=== PATIENT | male | born 1965 | race Caucasian/White ===

== ENCOUNTER 2021-02-09 18:59 | Emergency (ER) | payer OTHER ==
[~2021-02-09] VITALS: Ht 170.2 cm; Wt 77.3 kg
[2021-02-09] MEDS ORDERED: ondansetron/PF 4mg/2ml inj IV ONE ×4 (19:05→21:05)
[2021-02-09] MEDS ORDERED: morphine 4 MG/ML inj SYRINge IV ONE (19:05)
[2021-02-09] MEDS ORDERED: fentaNYL/PF 50MCG/1 ML 2ML syringe IV ONE ×3 (19:20→21:05)
[2021-02-09] MEDS ORDERED: ONDA4TAB6 PO (19:20)
[2021-02-09] MEDS ORDERED: etomidate 2mg/ml inj. IV ONE ×2 (19:20→21:05)
[2021-02-09] MEDS ORDERED: normal saline 1000ML IV soln IVB ONE (19:20)
[2021-02-09] MEDS ORDERED: HYDR-3964 PO (19:20)
--- NOTE | 2021-02-09 20:15 | NUR ---
VO from Dr. Lobo for 5 more mg Eto; VO from Dr. Lobo for 5 more mg Eto again; VO from Dr. Lobo for 10 more mg Eto again. Administered as ordered.
[2021-02-09] MEDS ORDERED: HYDROcodone/acetaminophen 10/325mg tab PO ONE (20:50)
--- NOTE | 2021-02-09 21:00 | NUR ---
called patients updated patients that ed needs to consult with ortho and to wait at home and i will call with update after the doctors consultation
--- NOTE | 2021-02-09 22:00 | NUR ---
Per MD, prepare for conscious sedation to reset ankle again per Ortho surgeon's request. Staff summoned and assembled. Patient updated.
[2021-02-09] MEDS ORDERED: propofol 1000mg/100ml bottle 100 ML IV ONE (22:17)
--- NOTE | 2021-02-09 22:20 | NUR ---
VO from Dr. Lobo administered: 40 mg total of Etoidate in 4 doses of 10 mgs, 50 mcg of Fentanyl (not the 100 mcg originally ordered); 100 mg Propofol.
--- NOTE | 2021-02-09 22:22 | NUR ---
PT AWAKENING DURING MOD SEDATION, OVERRIDE PROPOFOL APPROVED BY MD CABELLO
--- NOTE | 2021-02-09 22:40 | NUR ---
award machine operator notified to inform MD of bigeminy when patient dozes off. HR in 70's in NSR when patient is awake and talking.
--- NOTE | 2021-02-09 22:54 | NUR ---
MD Lobo at bedside discussing plan of care with patient. aware of bigeminy and says okay to give the [place] 10/325 ordered earlier prior to second reduction.
--- NOTE | 2021-02-09 23:15 | NUR ---
called to come get patient.
[2021-02-10 03:35] VITALS: BP 124/78
== END 2021-02-10 00:02 | disposition home or self-care (01) ==
LOC: ER 19:00
DX: S82.852A Displaced trimalleolar fracture of left lower leg, initial encounter for closed fracture (principal); Z88.6 Allergy status to analgesic agent; Z79.899 Other long term (current) drug therapy; Z72.89 Other problems related to lifestyle; V80.010A Animal-rider injured by fall from or being thrown from horse in noncollision accident, initial encounter; Y93.89 Activity, other specified; Y92.89 Other specified places as the place of occurrence of the external cause; Y99.8 Other external cause status
CPT/HCPCS: 27818; 73560; 73600; 73610; 96374; 96375; 99152; 99153; 99285; J2405; J2704; J3010; J7030; 96376

== ENCOUNTER 2021-03-18 08:27 | Day surgery (SDC) | payer OTHER ==
[2021-03-05 14:06] LABS: BASOPHILS # (AUTO) 0.1 X10'3 (0-0.2); BASOPHILS % (AUTO) 0.7 % (0-1); EOSINOPHILS # (AUTO) 0.1 X10'3 (0-0.9); EOSINOPHILS % (AUTO) 1.7 % (0-6); LYMPHOCYTES # (AUTO) 1.2 X10'3 (1.1-4.8); LYMPHOCYTES % (AUTO) 14.5 % (21-51); MEAN CORPUSCULAR HEMOGLOBIN 32.7 PG (27.0-31.0); MEAN CORPUSCULAR HGB CONC 34.5 g/dL (33.0-36.5); MEAN CORPUSCULAR VOLUME 94.7 FL (78-98); MEAN PLATELET VOLUME 6.6 FL (7.4-10.4); MONOCYTES # (AUTO) 0.6 X10'3 (0-0.9); MONOCYTES % (AUTO) 7.2 % (2-12); NEUTROPHILS % (AUTO) 75.9 % (42-75); PRE OP HEMATOCRIT 46.9 % (42.0-52.0); PRE OP HEMOGLOBIN 16.2 g/dL (14.0-17.9); PRE OP PLATELET COUNT 372 X10'3 (140-440); RED BLOOD COUNT 4.95 X10'6 (4.70-6.10); RED CELL DISTRIBUTION WIDTH 13.2 % (11.5-14.5)
[2021-03-05 14:29] LABS: ALBUMIN/GLOBULIN RATIO 1.2 (1.1-1.5); ALKALINE PHOSPHATASE 99 IU/L (46-116); BLOOD UREA NITROGEN 18 MG/DL (7-18); CALCIUM 9.1 MG/DL (8.5-10.1); CHLORIDE 102 MMOL/L (99-107); PRE OP ALT 36 U/L (30-65); PRE OP ANION GAP 10 (8-16); PRE OP AST 20 U/L (10-37); PRE OP BILIRUB, TOTAL 0.8 MG/DL (0.0-1.0); PRE OP GLUCOSE 100 MG/DL (70-104); PRE OP POTASSIUM 4.2 MMOL/L (3.4-5.1); PRE OP SODIUM 139 MMOL/L (135-145); TOTAL PROTEIN 7.4 G/DL (6.4-8.2); eGFR 88 ML/MIN
[~2021-03-18] VITALS: Ht 170.2 cm; Wt 71.9 kg
[2021-03-18] VITALS (13 sets, daily range): BP systolic 92–124; BP diastolic 56–78
[~2021-03-18 08:27] MED LIST: ONDA4TAB6 PO; cefazolin/dext.iso 2gm/100ml IV ONE; famotidine 20mg tablet PO ONE; ringers solution, lacted 1,000 ML IV SCH
[2021-03-18] MEDS ORDERED: glycopyrrolate 0.2mg/ml inj ONE (10:09)
[2021-03-18] MEDS ORDERED: sevoflurane 250ml liquid IH ONE (10:09)
[2021-03-18] MEDS ORDERED: rocuronium 10mg/ml inj IV ONE (10:09)
[2021-03-18] MEDS ORDERED: neostigmine methylsulfate 1 MG/ML 10ml vial ONE (10:09)
[2021-03-18] MEDS ORDERED: ondansetron/PF 4mg/2ml inj ONE (10:09)
[2021-03-18] MEDS ORDERED: dexamethasone sod phosphate 10mg/ml inj ONE (10:09)
[2021-03-18] MEDS ORDERED: HYDR-3972 PO (10:10)
[2021-03-18] MEDS ORDERED: ASPI-1397 PO (10:10)
[2021-03-18] MEDS ORDERED: ERGO500093 PO (10:10)
[2021-03-18] MEDS ORDERED: meperidine/PF 25mg/ml syringe IV PRN ×2 (10:15)
[2021-03-18] MEDS ORDERED: labetalol 20mg/4ml (5mg/ml) syringe IV PRN (10:15)
[2021-03-18] MEDS ORDERED: ondansetron/PF 4mg/2ml inj IV PRN (10:15)
[2021-03-18] MEDS ORDERED: fentaNYL/PF 50MCG/1 ML 2ML syringe IV PRN ×2 (10:15)
[2021-03-18] MEDS ORDERED: ringers solution, lacted 1,000 ML IV SCH (10:15)
[2021-03-18] MEDS ORDERED: hydrALAZINE 20mg/ml inj. IV PRN (10:15)
[2021-03-18] MEDS ORDERED: BUPIVAcaine/PF 2.5 mg/ml (0.25%) 30ml vial ONE (10:29)
[2021-03-18] MEDS ORDERED: LIDOcaine 1% 30ml preserv. free vial ONE (10:29)
[2021-03-18] MEDS ORDERED: fentaNYL/PF 50MCG/1 ML 2ML syringe ONE (10:34)
[2021-03-18] MEDS ORDERED: midazolam 1 mg/ML 2ml injection ONE (10:34)
[2021-03-18] MEDS ORDERED: oxyCODONE/APAP 5-325mg tablet PO PRN ×2 (12:25)
--- NOTE | 2021-03-18 14:52 | NUR ---
PT UP AND ABLE TO AMBULATE SAFELY W/CRUTCHES, HAS VOIDED X 2, STATES ADEQUATE URINE AND FLOW W/VOIDS. D/C INSTRUCTIONS GIVEN AND GONE OVER W/PT WHO VERBALIZED UNDERSTANDING. PT D/CD TO HOME VIA W/C TO PRIVATE VEHICLE W/O INCIDENT. Addendum: 03/18/21 at 1509 by Liza Loving RN Amended: Links added.
== END 2021-03-18 14:52 | disposition home or self-care (01) ==
LOC: PAS 08:27
PROVIDERS: ATTEND Surgery
DX: K43.6 Other and unspecified ventral hernia with obstruction, without gangrene (principal); K40.20 Bilateral inguinal hernia, without obstruction or gangrene, not specified as recurrent; Z20.822 Contact with and (suspected) exposure to COVID-19; Z98.1 Arthrodesis status; Z98.890 Other specified postprocedural states; Z88.5 Allergy status to narcotic agent; Z79.82 Long term (current) use of aspirin; Z79.899 Other long term (current) drug therapy; Z81.8 Family history of other mental and behavioral disorders; Z82.49 Family history of ischemic heart disease and other diseases of the circulatory system
CPT/HCPCS: 36415; 49561; 49650; 80053; 82948; 85025; 93005; C1781; J2001; J2250; J3010; J3490; J7120; S2900; U0003; U0005; A4215; A4618; A7000; J1100; J2405; J2710